=== PATIENT | female | born 1940 | race Two or more races ===

== ENCOUNTER → 2020-09-28 | Outpatient (CLI) | payer OTHER | END | disposition home or self-care (01) | LOC: OFIC 805 10:45 | PROVIDERS: ATTEND Otolaryngology Otology & Neurotology | DX: D44.7 Neoplasm of uncertain behavior of aortic body and other paraganglia (principal); H91.8X1 Other specified hearing loss, right ear ==

== ENCOUNTER 2020-12-25 10:39 | Outpatient (CLI) | payer OTHER | END 2020-12-25 10:46 | disposition home or self-care (01) | LOC: TOM 10:39 | PROVIDERS: ATTEND Otolaryngology Otology & Neurotology | DX: D14.0 Benign neoplasm of middle ear, nasal cavity and accessory sinuses (principal) ==

== ENCOUNTER 2021-06-20 06:11 | Day surgery (SDC) | payer OTHER ==
[~2021-06-20 06:11] MED LIST: SYNTHROID50 MCG PO; TOPROL XL25 M1 PO; ZESTRIL40 M1 PO; [UNRECOGNIZED DRUG - OTHER] PO
[2021-06-20] MEDS ORDERED: AMOXICILLIN500 MG PO (10:31)
== END 2021-06-20 12:55 | disposition home or self-care (01) ==
LOC: CIR.AMB 06:11
PROVIDERS: ATTEND Otolaryngology Otology & Neurotology
DX: H65.21 Chronic serous otitis media, right ear (principal); H90.11 Conductive hearing loss, unilateral, right ear, with unrestricted hearing on the contralateral side; D36.11 Benign neoplasm of peripheral nerves and autonomic nervous system of face, head, and neck; Z20.822 Contact with and (suspected) exposure to COVID-19